=== PATIENT | female | born 1980 | race African-American/Black ===

== ENCOUNTER 2022-06-23 01:51 | Emergency (ER) | payer MEDICAID, OTHER ==
[~2022-06-23] VITALS: Ht 160 cm; Wt 75.0 kg
[2022-06-23] MEDS ORDERED: IBUPROFEN 600MG TABLET PO ONE (02:15)
[2022-06-23] MEDS ORDERED: IBUP-2029 MT (04:43)
[2022-06-23] MEDS ORDERED: IBUPROFEN 600MG TABLET PO NR (04:45)
[2022-06-23 04:54] VITALS: BP 124/78
== END 2022-06-23 04:45 | disposition home or self-care (01) ==
LOC: ER 01:51
DX: S00.83XA Contusion of other part of head, initial encounter (principal); M79.661 Pain in right lower leg; Z88.1 Allergy status to other antibiotic agents; V43.52XA Car driver injured in collision with other type car in traffic accident, initial encounter; Y93.89 Activity, other specified; Y92.411 Interstate highway as the place of occurrence of the external cause
CPT/HCPCS: 71045; 73590; 81025; 99284